=== PATIENT | female | born 1950 | race Caucasian/White ===

== ENCOUNTER 2017-02-04 11:28 | Emergency (ER) | payer OTHER ==
[~2017-02-04] VITALS: Ht 152.4 cm; Wt 72.7 kg
[~2017-02-04 11:28] MED LIST: CHLO25CA10 PO; CITA40TA PO; LEVO88TA4 PO; LIDO700A6 TP; LISI40TA PO; MULT-1018 PO; OXYC5TAB72 PO; PRAZ1CAP2 PO; [UNRECOGNIZED DRUG - CODE] PO
[2017-02-04 11:51] VITALS: BP 196/97; PULSE 70; RESP 18; O2SAT 100
--- NOTE | 2017-02-04 12:47 | ED.REPORT ---
HPI-Back Pain 40 and Over Date of Service February 04, 2017 ED Provider: History of Present Illness: 66yo female with long hx. of chronic back pain, worsening in past 2 weeks. No new trauma or known mechanism. She reports known hx. of compression fractures and bulging discs, however, pain is sharp and much worse than baseline. No fever, no change in bowel/bladder function. No radiation of pain. Nursing Notes Stated Complaint: SEVERE BACK PAIN Chief Complaint: Back Pain or Injury Nursing Notes Reviewed: Yes Allergies: Coded Allergies: No Known Allergies (Unverified Allergy, Unknown, 02/25/15) Scheduled Citalopram Hydrobromide (Celexa) 40 Mg Tablet 40 MG PO DAILY Levothyroxine (Levothyroxine) 88 Mcg Tablet 88 MCG PO DAILY Lidocaine (Lidoderm) 700 Mg Adh..patch 1 PATCH TP UD Lisinopril (Lisinopril) 40 Mg Tablet 40 MG PO AM Multivitamin (Multi Vitamin Daily) 1 Each Tablet 1 EACH PO DAILY Prazosin (Prazosin) 1 Mg Capsule 1 MG PO HS Thiamine HCl (Thiamine HCl) 100 Mg Tab 100 MG PO DAILY Scheduled PRN Chlordiazepoxide (Chlordiazepoxide) 25 Mg Capsule 25 MG PO Q6-8H PRN PRN For Anxiety or Agitation oxyCODONE (oxyCODONE) 5 Mg Tablet 5 MG PO 6-8 PRN PRN For Pain General Time Seen by MD: 12:46 Chief Complaint Back pain Hx Obtained From: Patient Arrived By: Walk-in Sudden in Onset?: No Onset Occurred: More than a week ago... (2 weeks) Caused by: Spontaneous/no mechanism Quality: Sharp Radiation: : Does not radiate Severity: Current: Severe Severity: Maximum: Severe Associated with: Denies: Chest pain, Fever, Inability to walk, Incontinence bladder, Incontinence bowel, Numbness left low ext, Numbness right low ext, Weakness left lower ext, Weakness right lower ext Pertinent Negative: Pt denies other symptoms Recent Healthcare: No recent doctor visit Similar Sx Previous: Yes Risk Factors )( AAA Risk Stratification Risk factors reviewed )( TAD Risk Stratification Risk factors reviewed Epidural Hematoma Risk Stratif No risk factors Epidural Abscess Risk Stratifi No risk factors Past Medical History Past Medical History Notes: Pt seen 02/23/15 for back pain/GLF Past Medical History Elevated transaminases HTN h/o ETOH Reports: Hypertension Smoking History Former Smoker Social History none reported Alcohol Use: 3-5 per day Drug Use: Denies drug use Ambulatory Status Independent Review of Systems Constitutional: Denies: Chills Respiratory: Denies: Shortness of breath Cardiovascular: Denies: Chest pain GI: Denies: Abdominal pain Female: Denies: Dysuria, Hematuria, Incontinence Musculoskeletal: Reports: Back pain, Denies: Extremity swelling Neurologic: Denies: Focal weakness Physical Exam Initial Vital Signs Vital Signs (First) Date Time Temp Pulse Resp B/P Pulse Ox O2 Delivery O2 Flow Rate FiO2 02/04/17 11:51 36.6 70 18 196/97 100 Initial VS: Reviewed General/Constitutional: Awake, Alert, Well developed, Not toxic appearing Distress / Hydration: Positive: Distress moderate Respiratory / Chest: Breath sounds NL, Breath sounds = bilat, No respiratory distress Cardiovascular: Heart rate NL, Regular rhythm, Heart sounds NL Abdomen: Soft, Non-tender Flank / Spine / Paraspinal: Positive: Lumbar paraspinal tend... (Mid) Muscle Spasm / ROM: Positive: ROM decrease - severe Straight Leg Raise: Positive: Strt leg raise + L 20 deg, Strt leg raise + R 20 deg Neurologic: Oriented X3, Speech NL, No motor deficits, No sensory deficits Sensory Deficit: Negative: Saddle anesthesia Gait Abnormality: Positive: Antalgic gait Interpretation & Diagnostics X-Ray Interpretation Xray Interpretation: PROCEDURE: MRI LUMBAR SPINE WITHOUT CONTRAST ([id number]) INDICATIONS: worsening pain TECHNIQUE: Noncontrast sagittal T1 spin echo and T2 fast echo, sagittal STIR, axial T1 and T2 fast spin echo through the lumbar spine. In cases with scoliosis, additional coronal T2 fast spin echo may be performed. COMPARISON: [facility], CT, ABD/PELVIS W/CON (PNL), 09/26/2013, 23:48. [facility], MR, LUMBAR SPINE W/O CONTRAST, 02/25/2015, 8:11. FINDINGS: Image quality: Excellent. Alignment and Curvature: There is a mild kyphosis centered at the thoracolumbar junction. Bone Marrow: Marrow is of normal overall signal. They are mild superior endplate compression fractures of the T12 and L1 vertebral bodies with approximately 40% loss of height at T12 and 20% loss of height at L1. There is slight posterior displacement of the superior and plate components at these levels with associated moderate spinal canal narrowing. There is no associated bone marrow edema to suggest acute fractures. There is bone marrow edema along the inferior endplate of the L2 vertebral body associated with a Schmorl's node centrally. Spinal Cord: Conus medullaris terminates at the L2-L3 level. Visualized cord demonstrates normal size. There is suggestion of slight cord edema at the level of T11-T12 although this may be due to artifact. Paraspinous Soft Tissues: No paravertebral masses. There is mild dilatation of the visualized common bile duct, measuring up to 8 mm. There is a cystic lesion in the left adnexa redemonstrated measuring up to 2.4 cm, similar in size compared to the prior abdominal CT. T12-L1: Mild loss of disc height and a small broad-based disc osteophyte complex as well as slight posterior displacement of the superior endplate component of T12. There is associated moderate spinal canal narrowing with minimal bilateral neuroforaminal narrowing. L1-L2: Kfgi-ka-vfwjegsz loss of disc height with posterior displacement of the superior endplate component of L1. There is associated moderate spinal canal narrowing and minimal right neuroforaminal narrowing. L2-L3: Minimal broad-based disc bulge. There is associated minimal spinal canal narrowing. No neuroforaminal narrowing. L3-L4: Disc desiccation with a minimal broad-based disc bulge. There is mild facet arthropathy and ligament flavum hypertrophy. There is minimal spinal canal narrowing with minimal bilateral neuroforaminal narrowing. L4-L5: Disc desiccation with minimal loss of disc height particularly. There is a small broad-based disc bulge. There is moderate facet arthropathy and mild inflammatory tissue. The findings contribute to mild to moderate spinal canal narrowing with mild bilateral neuroforaminal narrowing. L5-S1: Minimal loss of disc height posteriorly with a small broad-based disc bulge. There is moderate facet arthropathy, left greater than right. There is associated mild spinal canal narrowing and mild narrowing of the left lateral recess. Mild left neuroforaminal narrowing also noted. IMPRESSION: 1. Nonacute superior endplate compression fractures of the T12 and L1 vertebral bodies with associated moderate spinal canal narrowing as described. There is possible slight cord edema at the T11-T12 level although this may be due to artifact. 2. Elsewhere, mild multilevel spinal canal and neuroforaminal narrowing demonstrated without high-grade stenoses. 3. Mild bone marrow edema within the L2 vertebral body along the inferior endplate associated with a Schmorl's node. Dictated by: Jamie Castillo M.D. on 02/04/2017 at 15:25 Approved by: Jamie Castillo M.D. on 02/04/2017 at 15:41 Re-Eval/Medical Decision Med Decision/Clinical Course Pt's MRI result reviewed with Dr. Simms, who concurs with plan to treat pain and have her f/u with her Ortho Spine clinic Counseled Regarding: Diagnosis, Lab results, Need for follow-up, When/why to return to ED Discharge & Departure Shift Change Sign-Out Response to Therapy: Improved Impression: Primary Impression: Compression fx, lumbar spine Encounter type: initial encounter Fracture type: closed Qualified Code: S32.000A - Wedge compression fracture of unspecified lumbar vertebra, initial encounter for closed fracture Additional Impressions: Chronic back pain Back pain location: low back pain Back pain laterality: midline Sciatica presence: without sciatica Qualified Code: M54.5 - Low back pain Hypertension Hypertension type: essential hypertension Qualified Code: I10 - Essential ( primary) hypertension Disposition: Home Patient Instructions: Acute Low Back Pain (ED) Additional Instructions: Rest, local heat, elevate knees to chest. take meds as needed. Follow up with your ortho doctor later this week. Return to ER if anything worsens. Referrals: Ortho 2-3 days follow up EDSupervising Provider for APC: Keith Lindsay MD, Christopher R PAC February 04, 2017 12:47
[2017-02-04] MEDS ORDERED: oxyCODONE-Acetamin 5-325 mg Tablet PO ONE (13:00)
--- NOTE | 2017-02-04 15:42 | DRSVH ---
PROCEDURE: MRI LUMBAR SPINE WITHOUT CONTRAST ([id number]) INDICATIONS: worsening pain TECHNIQUE: Noncontrast sagittal T1 spin echo and T2 fast echo, sagittal STIR, axial T1 and T2 fast spin echo thr ough the lumbar spine. In cases with scoliosis, additional coronal T2 fast spin echo may be performe d. COMPARISON: [facility], CT, ABD/PELVIS W/CON (PNL), 09/26/2013, 23:48. [facility], MR, LUMBAR SPINE W/O CONTRAST, 02/25/2015, 8:11. FINDINGS: Image quality: Excellent. Alignment and Curvature: There is a mild kyphosis centered at the thoracolumbar junction. Bone Marrow: Marrow is of normal overall signal. They are mild superior endplate compression fractu res of the T12 and L1 vertebral bodies with approximately 40% loss of height at T12 and 20% loss of h eight at L1. There is slight posterior displacement of the superior and plate components at these le vels with associated moderate spinal canal narrowing. There is no associated bone marrow edema to edmond ggest acute fractures. There is bone marrow edema along the inferior endplate of the L2 vertebral anthony dy associated with a Schmorl's node centrally. Spinal Cord: Conus medullaris terminates at the L2-L3 level. Visualized cord demonstrates normal si ze. There is suggestion of slight cord edema at the level of T11-T12 although this may be due to art ifact. Paraspinous Soft Tissues: No paravertebral masses. There is mild dilatation of the visualized commo n bile duct, measuring up to 8 mm. There is a cystic lesion in the left adnexa redemonstrated measur ing up to 2.4 cm, similar in size compared to the prior abdominal CT. T12-L1: Mild loss of disc height and a small broad-based disc osteophyte complex as well as slight po sterior displacement of the superior endplate component of T12. There is associated moderate spinal canal narrowing with minimal bilateral neuroforaminal narrowing. L1-L2: [id number]-qrpjpxni loss of disc height with posterior displacement of the superior endplate comp onent of L1. There is associated moderate spinal canal narrowing and minimal right neuroforaminal na rrowing. L2-L3: Minimal broad-based disc bulge. There is associated minimal spinal canal narrowing. No neuro foraminal narrowing. L3-L4: Disc desiccation with a minimal broad-based disc bulge. There is mild facet arthropathy and l igament flavum hypertrophy. There is minimal spinal canal narrowing with minimal bilateral neurofora fabiano narrowing. L4-L5: Disc desiccation with minimal loss of disc height particularly. There is a small broad-based disc bulge. There is moderate facet arthropathy and mild inflammatory tissue. The findings contribu te to mild to moderate spinal canal narrowing with mild bilateral neuroforaminal narrowing. L5-S1: Minimal loss of disc height posteriorly with a small broad-based disc bulge. There is moderat e facet arthropathy, left greater than right. There is associated mild spinal canal narrowing and mi ld narrowing of the left lateral recess. Mild left neuroforaminal narrowing also noted. IMPRESSION: 1. Nonacute superior endplate compression fractures of the T12 and L1 vertebral bodies with associat ed moderate spinal canal narrowing as described. There is possible slight cord edema at the T11-T12 level although this may be due to artifact. 2. Elsewhere, mild multilevel spinal canal and neuroforaminal narrowing demonstrated without high-gr jose cruz stenoses. 3. Mild bone marrow edema within the L2 vertebral body along the inferior endplate associated with a Schmorl's node. Dictated by: Jamie Castillo M.D. on 02/04/2017 at 15:25 Approved by: Jamie Castillo M.D. on 02/04/2017 at 15:41
[2017-02-04] MEDS ORDERED: HYDR-4003 PO (16:42)
[2017-02-04] MEDS ORDERED: LIDO700A6 TP (16:42)
[2017-02-04 16:52] VITALS: BP 173/87; PULSE 61; O2SAT 98
[2017-02-04 16:54] VITALS: BP 173/87; PULSE 61; RESP 18; O2SAT 98
== END 2017-02-04 16:55 | disposition home or self-care (01) ==
LOC: SED 11:28
DX: S32.000A Wedge compression fracture of unspecified lumbar vertebra, initial encounter for closed fracture (principal); X58.XXXA Exposure to other specified factors, initial encounter; Y93.89 Activity, other specified; Y92.9 Unspecified place or not applicable; Y99.8 Other external cause status; I10 Essential (primary) hypertension; Z87.891 Personal history of nicotine dependence